=== PATIENT | male | born 1950 | race Caucasian/White ===

== ENCOUNTER 2021-03-19 03:15 | Emergency (ER) | payer OTHER ==
[2021-03-19] MEDS ORDERED: Nitroglycerin 2% Ointment 1 INCH/1 GM Packet ONE (03:22)
[2021-03-19] MEDS ORDERED: Furosemide 40 MG/4 ML VIAL ONE (03:55)
[2021-03-19 04:15] LABS: ALT (SGPT) 16 U/L (8-55); AST (SGOT) 17 U/L (5-34); Albumin 3.2 g/dL (3.4-4.8); Alkaline Phosphatase 85 U/L (40-110); Anion Gap 14 mmol/L (10-20); BUN (Urea Nitrogen) 25 mg/dL (8.4-25.7); Bilirubin, Total 0.5 mg/dL (0.2-1.2); Calc. Creatinine Clearance 0 mL/min (70-130); Calcium 9.6 mg/dL (7.8-10.44); Carbon Dioxide 23 mmol/L (23-31); Chloride 107 mmol/L (98-107); Globulin 4.4 g/dL (2.4-3.5); Glucose 149 mg/dL (80-115); Magnesium 1.8 mg/dL (1.6-2.6); Potassium 3.8 mmol/L (3.5-5.1); Protein, Total 7.6 g/dL (5.8-8.1); Sodium 140 mmol/L (136-145)
[2021-03-19 04:17] LABS: #Basophils 0.1 10x3/uL (0.0-0.2); #Eosinphils 0.2 10x3/uL (0.0-0.5); #Monocytes 0.5 10x3/uL (0.0-1.1); #Neutrophils 5.6 10x3/uL (1.5-8.4); %Basophils 0.6 % (0.0-2.0); %Eosinophils 2.6 % (0.0-6.0); %Lymphocytes 20.5 % (18.0-47.0); %Monocytes 6.6 % (0.0-10.0); %Neutrophils 69.4 % (40.0-75.0); Hemoglobin 11.3 g/dL (13.5-17.5); Mean Corpuscular Hemoglobin 28.7 pg (27.0-33.0); Mean Corpuscular Volume 92.6 fl (81.2-95.1); Mean Platelet Volume 11.1 fl (7.4-10.4); Platelet Count 220 10x3/uL (150-450); RBC Distribution Width 15.8 % (11.5-14.5); Red Blood Cell (RBC) Count 3.94 10x6/uL (4.32-5.72)
[2021-03-19 04:29] LABS: D-Dimer Test 1.42 mg/L FEU (0.19-0.50); INR-International Normal Ratio 1.2; PTT 27.9 sec (22.0-33.0); Prothrombin Time 12.9 sec (9.5-12.1)
[2021-03-19 04:45] LABS: CKMB 2.6 ng/mL (0-6.6)
[2021-03-19] MEDS ORDERED: Acetaminophen 500 MG TAB ONE (05:11)
[2021-03-19 06:05] LABS: SARS-CoV-2 NAA Rapid Test Not Detected (NotDetected)
[2021-03-19] MEDS ORDERED: Labetalol HCl 100 MG/20 ML VIAL ONE (06:55)
[2021-03-19] MEDS ORDERED: Aspirin Chewable 81 MG TAB ONE (09:24)
[2021-03-19] MEDS ORDERED: metFORMIN 500 MG TAB PO SCH ×2 (11:30→17:00)
[2021-03-19] MEDS ORDERED: Lisinopril 20 MG TAB PO ONE (11:30)
[2021-03-19] MEDS ORDERED: Clopidogrel Bisulfate 75 MG TAB PO ONE (11:30)
[2021-03-19] MEDS ORDERED: Atorvastatin Calcium 40 MG TAB PO ONE (11:30)
[2021-03-19] MEDS ORDERED: Clopidogrel Bisulfate 75 MG TAB ONE (12:15)
[2021-03-19] MEDS ORDERED: metFORMIN 500 MG TAB ONE ×2 (13:01→20:10)
[2021-03-19] MEDS ORDERED: Furosemide 40 MG/4 ML VIAL SLOW IVP SCH (15:00)
[2021-03-19] MEDS ORDERED: NPH, Human Insulin Isophane 300 UNIT/3 ML VIAL SC SCH (21:00)
[2021-03-20] MEDS ORDERED: NPH, Human Insulin Isophane 300 UNIT/3 ML VIAL SC SCH (09:00)
[2021-03-20] MEDS ORDERED: Atorvastatin Calcium 40 MG TAB PO SCH (09:00)
[2021-03-20] MEDS ORDERED: Clopidogrel Bisulfate 75 MG TAB PO SCH (09:00)
[2021-03-20] MEDS ORDERED: Lisinopril 20 MG TAB PO SCH (09:00)
== END 2021-03-20 02:10 | disposition short-term general hospital (02) ==
LOC: CSHERS 03:15
DX: I11.0 Hypertensive heart disease with heart failure (principal); I50.9 Heart failure, unspecified; Z20.822 Contact with and (suspected) exposure to COVID-19; E11.9 Type 2 diabetes mellitus without complications; I25.10 Atherosclerotic heart disease of native coronary artery without angina pectoris; K21.9 Gastro-esophageal reflux disease without esophagitis; M19.90 Unspecified osteoarthritis, unspecified site; E78.5 Hyperlipidemia, unspecified; E66.9 Obesity, unspecified; Z95.1 Presence of aortocoronary bypass graft; Z79.4 Long term (current) use of insulin; Z86.73 Personal history of transient ischemic attack (TIA), and cerebral infarction without residual deficits; Z79.82 Long term (current) use of aspirin; Z79.899 Other long term (current) drug therapy
CPT/HCPCS: 0240U; 36415; 36416; 71045; 71275; 80053; 82553; 83735; 83880; 84443; 84484; 85025; 85379; 85610; 85730; 93005; 96374; 96375; J1815; J1940